=== PATIENT | female | born 1950 | race Two or more races ===

== ENCOUNTER 2023-08-28 18:42 | Emergency (ER) | payer MEDICARE, OTHER ==
[~2023-08-28] VITALS: Ht 160 cm; Wt 92.5 kg
[2023-08-28] MEDS ORDERED: ONDANSETRON ODT 4 MG TAB.RAPDIS SL ONE (19:30)
[2023-08-28] MEDS ORDERED: LORAZEPAM 0.5 MG TABLET PO ONE (19:30)
[2023-08-28] MEDS ORDERED: HYDROCODONE/APAP 10-325 MG TABLET PO ONE (19:30)
[2023-08-28] MEDS ORDERED: CYCLOBENZAPRINE HCL 10 MG TABLET PO ONE (19:30)
[2023-08-28 19:36] LABS: *BLOOD, URINE 2+ (NEGATIVE); *CLARITY,URINE CLEAR (CLEAR); *COLOR,URINE YELLOW (YELLOW); *KETONES,URINE TRACE (NEGATIVE); *PROTEIN,URINE NEGATIVE (NEGATIVE); *UROBILINOGEN,URINE 0.2 E.U./dl (NORMAL); LEUKOCYTE ESTERASE ,URINE NEGATIVE (NEGATIVE); NITRITE, URINE NEGATIVE (NEGATIVE); PH,URINE 5.5 (5.0-8.0); UGLUCOSE NEGATIVE (NEGATIVE)
[2023-08-28 19:40] LABS: *BILIRUBIN,URIN 1+ (NEGATIVE)
[2023-08-28] MEDS: ONDANSETRON 4 MG/2 ML VIAL IV ONE (19:55)
[2023-08-28] MEDS: LORAZEPAM 2 MG/1 ML VIAL IV ONE (19:55)
[2023-08-28] MEDS: HYDROMORPHONE 1 MG/1 ML DISP.SYRIN IV ONE (19:55)
[2023-08-28 19:57] LABS: BASOPHILS % (AUTO) 0.7 % (0.0-2.0); EOSINOPHILS # (AUTO) 0.2 K/uL (0.0-0.7); EOSINOPHILS % (AUTO) 2.4 % (0.0-7.0); HEMATOCRIT 40.5 % (31.2-41.9); HEMOGLOBIN 13.2 g/dL (10.9-14.3); LYMPHOCYTES # (AUTO) 1.6 K/uL (0.8-4.8); LYMPHOCYTES % (AUTO) 25.8 % (20.5-51.5); MEAN CORPUSCULAR HEMOGLOBIN 29.2 uug (24.7-32.8); MEAN CORPUSCULAR HGB CONC 33 g/dL (32.3-35.6); MEAN CORPUSCULAR VOLUME 89.8 fL (75.5-95.3); MONOCYTES # (AUTO) 0.5 K/uL (0.1-1.30); MONOCYTES % (AUTO) 8.4 % (0.0-11.0); NEUTROPHILS % (AUTO) 62.7 % (38.5-71.5); PLATELET COUNT (AUTO) 265 K/uL (179-408); RED BLOOD CELL COUNT(AUTO) 4.51 MIL/uL (3.63-4.92); RED CELL DISTRIBUTION WIDTH 14.1 % (12.3-17.7); WHITE BLOOD COUNT (AUTO) 6.3 K/uL (3.8-11.8)
[2023-08-28 20:00] LABS: DIFFERENTIAL COMMENT 1
[2023-08-28 20:06] LABS: CALCIUM 9.5 mg/dL (8.5-10.1); CREATININE 0.8 mg/dL (0.6-1.3); POTASSIUM 3.8 mmol/L (3.5-5.1)
[2023-08-28 20:11] LABS: ALBUMIN 3.9 g/dL (3.4-5.0); BILIRUBIN,TOTAL 0.6 mg/dL (0.2-1.0); TOTAL PROTEIN, SERUM 7.5 g/dL (6.4-8.2)
[2023-08-28] MEDS ORDERED: HYDR-4209 PO (22:14)
[2023-08-28] MEDS ORDERED: ONDA4TAB11 PO (22:14)
[2023-08-28] MEDS ORDERED: CYCL10TA9 PO (22:14)
[2023-08-28 23:42] LABS: SQUAMOUS EPITHELIAL CELL,UR FEW /HPF (NONE SEEN)
[2023-08-28 23:43] LABS: BACTERIA,URINE RARE /HPF (NONE SEEN); CALCIUM OXALATE CRYSTALS,UR MODERATE /HPF (NONE SEEN); WBC,URINE 0-3 /HPF (0-3)
[2023-08-29 01:07] VITALS: BP 136/71; TEMP 97.7; O2SAT 97
== END 2023-08-29 01:00 | disposition home or self-care (01) ==
LOC: ER 18:54
DX: M54.9 Dorsalgia, unspecified (principal); M62.830 Muscle spasm of back; R10.9 Unspecified abdominal pain; Z88.8 Allergy status to other drugs, medicaments and biological substances; Z79.899 Other long term (current) drug therapy
CPT/HCPCS: 36415; 85025; A4606; A4663; J1170; J2060; J2405; Q9967